=== PATIENT | male | born 1970 | race African-American/Black ===

== ENCOUNTER 2017-12-23 13:04 | Emergency (ER) | payer OTHER, BC ==
[~2017-12-23] VITALS: Ht 175.3 cm; Wt 98.0 kg
--- NOTE | 2017-12-23 14:42 | Diagnostic Imaging Report ---
EXAMINATION: CT of the neck without contrast HISTORY: Bone in throat, swallowed chicken bone, difficulty swallowing COMPARISON: None TECHNIQUE: Multidetector helical axial images were obtained from the sternal notch through the skull base without intravenous contrast. Images were reconstructed using soft tissue and bone algorithms and were viewed in multiplanar format. Dose modulation, iterative reconstruction, and/or weight based adjustment of the mA/kV was utilized to reduce the radiation dose to as low as reasonably achievable. FINDINGS: Primary lesions: No solid or cystic masses seen in the neck. No radiopaque foreign bodies. Nodes: No discrete enlarged cervical lymphadenopathy in this unenhanced study. Sinuses: Mucosal inflammatory thickening and fold retention cyst in the bilateral maxillary and sphenoid sinuses, partial opacification of the anterior and posterior ethmoidal sinuses, small osteoma in the left anterior ethmoidal sinuses. Erosive changes along the right maxillary alveolar ridge/floor of the right maxillary sinus Oral cavity: Unremarkable. Nasal cavity: Hypertrophy of the inferior turbinates. Possible mass or polyp in the right anterior nasal cavity/vestibule. Prominent left-sided nasal septal deviation. Salivary glands: Parotid and submandibular glands unremarkable. Pharynx: Unremarkable. Larynx: Incidentally noted tiny calcifications in the left palatine tonsil, minimal prominence of the right greater than left collecting tonsils, likely reactive, no discrete mass in this unenhanced study. Thyroid gland: Unremarkable. Upper esophagus: Unremarkable. Blood vessels: Cannot be evaluated due to the lack of IV contrast. Bones: As above. Dentition: Nearly edentulous maxilla. Large dental cavity in the remaining left central maxillary incisor. Incidental findings: Small approximately 5 mm curvilinear calcification along the superior margin of the left optic nerve sheath complex, an approximately 5 mm one on the right side comparison to prior studies if available is recommended. IMPRESSION: 1. No radiopaque foreign bodies. 2. Mucosal inflammatory thickening of the paranasal sinuses with erosive changes of the right maxillary alveolar ridge detail above. An ENT evaluation is advised. 3. Possible right nasal cavity mass or polyp. An ENT evaluation is advised. 4. Tiny calcifications in the left greater than right optic nerve-sheath complex as detailed above. Signed by: Dr. Venice Castro M.D. on 12/23/2017 2:39 PM
[2017-12-23 17:30] VITALS: BP 144/93
== END 2017-12-23 17:30 | disposition home or self-care (01) ==
LOC: ER 13:04
DX: T18.128A Food in esophagus causing other injury, initial encounter (principal); Y92.008 Other place in unspecified non-institutional (private) residence as the place of occurrence of the external cause; I10 Essential (primary) hypertension; J45.909 Unspecified asthma, uncomplicated
CPT/HCPCS: 70490; 99283